=== PATIENT | female | born 2000 | race Caucasian/White ===

== ENCOUNTER 2023-05-16 18:33 | Emergency (ER) | payer OTHER ==
[2023-05-16 18:53] VITALS: BP 139/65; PULSE 126; RESP 16; TEMP 101.4; BMI 38.9
[2023-05-16] MEDS ORDERED: SODIUM CHLORIDE 1,000 ML IV STA (20:19)
[2023-05-16] MEDS ORDERED: ACETAMINOPHEN 1000 MG/100 ML BAG IVPB ONE (20:19)
[2023-05-16] MEDS ORDERED: ACETAMINOPHEN INJECTION 100 ML IVPB ONE (20:41)
[2023-05-16 21:10] LABS: BASO % 0.5 % (0-2.0); EOS % 0.1 % (0-4.5); HEMATOCRIT 37.8 % (32.4-45.2); HEMOGLOBIN 12.2 GM/dL (10.7-15.3); LYMPH % 26.1 % (8-40); MCH 29.3 pg (25.7-33.7); MCHC 32.3 g/dl (32.0-36.0); MEAN CELL VOLUME 90.7 fl (80-96); MEAN PLT VOLUME 7.3 fl (7.5-11.1); MONO % 14.7 % (3.8-10.2); NEUT % 58.6 % (42.8-82.8); PLATELET COUNT 237 10^3/uL (134-434); RBC 4.16 M/mm3 (3.60-5.2); RDW 12.6 % (11.6-15.6); WHITE BLOOD COUNT 3.9 K/mm3 (4.0-10.0)
[2023-05-16 21:21] LABS: CHLORIDE 106 mmol/L (98-107); POTASSIUM 4.3 mmol/L (3.5-5.1); SODIUM 139 mmol/L (136-145)
[2023-05-16 21:23] LABS: CALCIUM 8.8 mg/dL (8.5-10.1)
[2023-05-16 21:24] LABS: ALBUMIN 3.6 g/dl (3.4-5.0); ANION GAP 8 MMOL/L (8-16); BLOOD UREA NITROGEN 9.5 mg/dL (7-18); CO2 25 mmol/L (21-32); GLUCOSE,RANDOM 124 mg/dL (74-106)
[2023-05-16 21:27] LABS: EPI CELLS 7 /uL (0-25.1); HCG,QUALITATIVE URINE Negative; HYALINE CASTS 0 /uL (0-3.1); URINE APPEARANCE CLEAR; URINE BACTERIA 12 /uL (0-1359); URINE BILIRUBIN NEGATIVE (NEGATIVE); URINE COLOR YELLOW; URINE GLUCOSE (UA) NEGATIVE (NEGATIVE); URINE KETONE NEGATIVE (NEGATIVE); URINE LEUK ESTERASE NEGATIVE (NEGATIVE); URINE NITRITE NEGATIVE (NEGATIVE); URINE PROTEIN NEGATIVE (NEGATIVE); URINE RBC 50 /uL (0-23.9); URINE UROBILINOGEN 0.2 mg/dL (0.2-1.0); URINE WBC 4 /uL (0-25.8)
[2023-05-16 21:27] LABS: CREATININE 0.8 mg/dL (0.55-1.3); SGOT/AST 39 U/L (15-37); SGPT/ALT 45 U/L (13-61)
[2023-05-16 21:28] LABS: BILIRUBIN,TOTAL 0.3 mg/dL (0.2-1); TOT PROT 7.4 g/dl (6.4-8.2)
[2023-05-16 21:30] LABS: ALK PHOS 81 U/L (45-117)
[2023-05-16 22:17] LABS: ANISOCYTOSIS 0; MACROCYTOSIS 0
== END 2023-05-16 22:54 | disposition home or self-care (01) ==
LOC: JERFT 18:33
PROC: 3E033GC Introduction of Other Therapeutic Substance into Peripheral Vein, Percutaneous Approach (ICD-10-PCS; principal; 2023-05-16)
DX: R50.9 Fever, unspecified (principal)
CPT/HCPCS: 0241U-QW; 36415; 80053; 81003; 84703; 85025; 85651; 86038; 86140; 86160; 86431; 86618; 86664; 87086; 99284-25